=== PATIENT | female | born 1985 | race American Indian/Alaskan Native ===

== ENCOUNTER 2016-10-31 10:21 | Emergency (ER) | payer OTHER ==
[2016-10-31 10:21] VITALS: BMI 33.9
[2016-10-31 10:34] VITALS: RESP 18
--- NOTE | 2016-10-31 11:34 | C.PDOC ---
History Of Present Illness 31 yr old female presents to the ER for reevaluation of throat pain. Patient was seen yesterday in ED for throat pain, was prescribed Augmentin and Motrin, but patient states the pain is not better since yesterday; pt took augmentin but unable to swallow motrin. Patient states the pain is worse on the left side and radiates to the left ear, with difficulty and painful swallowing. Patient denies chills, chest pain, nausea, vomiting, neck pain, back pain, weakness or numbness. Time Seen by Provider: 10/31/16 11:04 Chief Complaint (Nursing): ENT Problem History Per: Patient History/Exam Limitations: None Onset/Duration Of Symptoms: Days Current Symptoms Are (Timing): Still Present Past Medical History Reviewed: Historical Data, Nursing Documentation, Vital Signs Vital Signs: Last Vital Signs Temp 100 F H 10/31/16 13:09 Pulse 102 H 10/31/16 13:09 Resp 18 10/31/16 13:09 BP 148/88 10/31/16 13:09 Pulse Ox 98 10/31/16 14:26 - Medical History PMH: Anemia, Migraine Family History: States: No Known Family Hx - Social History Hx Tobacco Use: No Hx Alcohol Use: No Hx Substance Use: No - Immunization History Hx Tetanus Toxoid Vaccination: No Hx Influenza Vaccination: No Hx Pneumococcal Vaccination: No Review Of Systems Except As Marked, All Systems Reviewed And Found Negative. Constitutional: Negative for: Fever, Chills ENT: Positive for: Ear Pain (Radiating pain to the left ear. ), Throat Pain Cardiovascular: Negative for: Chest Pain Gastrointestinal: Negative for: Nausea, Vomiting Musculoskeletal: Negative for: Neck Pain, Back Pain Neurological: Negative for: Weakness, Numbness Physical Exam - Physical Exam Appears: Well, Non-toxic, Other (Uncomfortable) Skin: Warm, Dry, No Rash Head: Atraumatic, Normacephalic Ear(s): Bilateral: Normal Nose: Normal Oral Mucosa: Moist, No Trismus Throat: Erythema (Pharynx), Exudate (White ), No Mass, Other (Left tonsil enlarged) Lymphatic: Adenopathy (Submental adenopathy), Other ((+) Tender submandibular ) Chest: No Symmetrical, No Tenderness Cardiovascular: Rhythm Regular, No Murmur, Other (Tachy) Respiratory: Normal Breath Sounds, No Rales, No Rhonchi, No Stridor, No Wheezing Gastrointestinal/Abdominal: Normal Exam, Soft, No Tenderness, No Guarding, No Rebound Extremity: Normal ROM, No Swelling Neurological/Psych: Oriented x3, Normal Speech, Normal Motor ED Course And Treatment O2 Sat by Pulse Oximetry: 98 Medical Decision Making Medical Decision Making: PLAN: * POC Urine * Motrin PO * Decadron IM 1257 pm pt feeling much better, will d/c . pt has appt tomorrow with new pmd. Disposition Counseled Patient/Family Regarding: Diagnosis, Need For Followup - Disposition Disposition: HOME/ ROUTINE Disposition Time: 12:57 Condition: IMPROVED Additional Instructions: Take antibiotic as prescribed. Follow up with your doctor tomorrow as planned. Take ibuprofen or Tylenol for pain or fever. Return to ER for any worsening symptoms. Gargle several times a day with warm salty water or listerine. Instructions: Pharyngitis (ED) Forms: Work/School/Gym Excuse - Clinical Impression Clinical Impression: Pharyngitis - PA / PNP / Resident Statement MD/DO has reviewed & agrees with the documentation as recorded. - Scribe Statement The provider has reviewed the documentation as recorded by the Scribe Jessica Bland All medical record entries made by the Xanderibdeirdre were at my direction and personally dictated by me. I have reviewed the chart and agree that the record accurately reflects my personal performance of the history, physical exam, medical decision making, and the department course for this patient. I have also personally directed, reviewed, and agree with the discharge instructions and disposition.
[2016-10-31] MEDS ORDERED: Dexamethasone 4 mg/1 ml ONE (11:39)
[2016-10-31 13:10] VITALS: BP 148/88; PULSE 102; TEMP 100
[2016-10-31 14:26] VITALS: O2SAT 98
== END 2016-10-31 13:10 | disposition home or self-care (01) ==
LOC: C.ER 10:21
DX: J02.9 Acute pharyngitis, unspecified (principal)
CPT/HCPCS: 96372; 99283; J1100